=== PATIENT | male | born 1975 | race American Indian/Alaskan Native ===

== ENCOUNTER 2017-08-16 20:52 | Observation (INO) | payer OTHER ==
[2017-08-16 20:52] VITALS: BMI 37.3
[2017-08-16] MEDS ORDERED: Morphine 2 mg/ml ISec IVP STA (21:25)
[2017-08-16] MEDS ORDERED: Sodium Chloride 0.9% 500 ML IV STA (21:25)
--- NOTE | 2017-08-16 21:28 | ED PDOC ---
Arrival/HPI - General Chief Complaint: Abdominal Pain Time Seen by Provider: 08/16/17 21:21 - History of Present Illness Narrative History of Present Illness (Text): 08/16/17 21:26 Patient is a 42 y/o M with hx of diverticulitis presenting with 2 day history of LLQ. Reports intermittent diarrhea. Denies vomiting. Denies dysuria, flank pain, or scrotal pain. Denies chest pain or shortness of breath. PMD: Dr. Jing Pa GI: Johnnie Past Medical History - Infectious Disease Hx of Infectious Diseases: None - Tetanus Immunization Tetanus Immunization: Unknown - Past Medical History Past Medical History: No Previous - Cardiac Hx Cardiac Disorders: No - Pulmonary Hx Respiratory Disorders: No - Neurological Hx Neurological Disorder: No - HEENT Hx HEENT Disorder: No - Renal Hx Renal Disorder: Yes Hx Kidney Stones: Yes Other/Comment: Renal Colic - Endocrine/Metabolic Hx Endocrine Disorders: No - Hematological/Oncological Hx Blood Disorders: No - Integumentary Hx Dermatological Disorder: No - Musculoskeletal/Rheumatological Hx Musculoskeletal Disorders: No - Gastrointestinal Hx Gastrointestinal Disorders: Yes Hx Diverticulitis: Yes - Genitourinary/Gynecological Hx Genitourinary Disorders: Yes Hx Hematuria: Yes - Psychiatric Hx Psychophysiologic Disorder: No Hx Substance Use: No - Past Surgical History Past Surgical History: Non-Contributing - Surgical History Hx Orthopedic Surgery: Yes - Anesthesia Hx Anesthesia: Yes - Suicidal Assessment Feels Threatened In Home Enviroment: No Family/Social History Family/Social History: No Known Family HX Smoking Status: Current Some Days Smoker Hx Alcohol Use: Yes Frequency of alcohol use: Socially Hx Substance Use: No Hx Substance Use Treatment: No Allergies/Home Meds Allergies/Adverse Reactions: Allergies avocado Allergy (Verified 12/11/15 02:45) ANAPHYLAXIS Review of Systems - Physician Review All systems were reviewed & negative as marked: Yes - Review of Systems Eyes: absent: Vision Changes ENT: absent: Hearing Changes Respiratory: absent: SOB, Cough, Sputum, Wheezing Cardiovascular: absent: Chest Pain, Edema, Calf Pain, EMMANUEL, Orthopnea, Syncope Gastrointestinal: Abdominal Pain, Diarrhea. absent: Constipation, Nausea, Vomiting Genitourinary Male: absent: Dysuria, Frequency, Hematuria, Urinary Output Changes Musculoskeletal: absent: Arthralgias Skin: absent: Rash Neurological: absent: Headache, Dizziness, Focal Weakness, Gait Changes, Speech Changes Psychiatric: absent: Anxiety Physical Exam Vital Signs Temp Pulse Resp BP Pulse Ox 08/16/17 21:13 99.5 F 90 17 130/85 98 Temperature: Afebrile Blood Pressure: Normal Pulse: Regular Respiratory Rate: Normal Appearance: Positive for: Well-Appearing, Non-Toxic, Comfortable Pain Distress: None Mental Status: Positive for: Alert and Oriented X 3 - Systems Exam Head: Present: Atraumatic, Normocephalic Pupils: Present: PERRL Extroacular Muscles: Present: EOMI Conjunctiva: Present: Normal Mouth: Present: Moist Mucous Membranes Neck: Present: Normal Range of Motion Respiratory/Chest: Present: Clear to Auscultation, Good Air Exchange. No: Respiratory Distress, Accessory Muscle Use Cardiovascular: Present: Regular Rate and Rhythm, Normal S1, S2. No: Murmurs Abdomen: Present: Tenderness (LLQ). No: Distention, Rebound, Guarding Back: Present: Normal Inspection Upper Extremity: Present: Normal Inspection Lower Extremity: Present: Normal Inspection Neurological: Present: GCS=15, CN II-XII Intact Psychiatric: Present: Alert, Oriented x 3 Medical Decision Making ED Course and Treatment: 08/16/17 22:54 Patient reports pain is similar to previous episodes of diverticulitis. Tenderness to LLQ. Pain medication, ivf, labs and ct ordered. Will sign out to Dr. Tao to follow-up labs and CT - RAD Interpretation Radiology Orders: 08/16/17 21:25 ABD & PELVIS IV CONTRAST ONLY [CT] Stat - Medication Orders Current Medication Orders: Discontinued Medications Sodium Chloride (Sodium Chloride 0.9%) 500 mls @ 999 mls/hr IV .Q31M STA Stop: 08/16/17 21:55 Ketorolac Tromethamine (Toradol) 30 mg IVP STAT STA Stop: 08/16/17 21:26 Morphine Sulfate (Morphine) 2 mg IVP STAT STA Stop: 08/16/17 21:26 Disposition/Present on Arrival - Present on Arrival Any Indicators Present on Arrival: No History of DVT/PE: Yes History of Uncontrolled Diabetes: No Urinary Catheter: No History of Decub. Ulcer: No History Surgical Site Infection Following: Orthopedic Procedures - Disposition Have Diagnosis and Disposition been Completed?: Yes Diagnosis: Abdominal pain Disposition Time: 22:55 Condition: FAIR Forms: [employer] (Arabic)
[2017-08-16] MEDS ORDERED: Iohexol 350 MG/100 ML VIAL ONE (23:15)
[2017-08-17 00:15] LABS: BASO # 0.02 K/mm3 (0.0-2.0); BASO % 0.3 % (0.0-3.0); EOS % 0.4 % (1.5-5.0); GRAN # 5.03 (1.4-6.5); GRAN % 67.7 % (50.0-68.0); HEMOGLOBIN 12.1 g/dL (14.0-18.0); LYMPH % 26.2 % (22.0-35.0); MEAN CELL VOLUME 82.2 fl (80.0-105.0); MEAN CORPUSCULAR HEMOGLOBIN 26.6 pg (25.0-35.0); MEAN CORPUSCULAR HGB CONC 32.4 g/dl (31.0-37.0); MEAN PLATELET VOLUME 11.8 fl (7.0-11.0); MONO # 0.4 (0.1-0.6); MONO % 5.4 % (1.0-6.0); RBC 4.55 10^6/uL (3.5-6.1); RED CELL DISTRIBUTION WIDTH 14.1 % (11.5-14.5); WHITE BLOOD COUNT 7.4 10^3/ul (4.5-11.0)
[2017-08-17 00:23] LABS: ALB/GLOB RATIO 1.1 (1.1-1.8); ALBUMIN 3.5 g/dL (3.0-4.8); ALT/SGPT 32 U/L (7-56); AST/SGOT 20 U/L (17-59); BLOOD UREA NITROGEN 13 mg/dL (7-21); CALCIUM 9.5 mg/dL (8.4-10.5); GFR AFRICAN-AMERICAN > 60; GFR NON-AFRICAN AMERICAN > 60; LIPASE 49 U/L (23-300)
--- NOTE | 2017-08-17 01:17 | CT ---
EXAM: CT Abdomen and Pelvis With Intravenous Contrast CLINICAL HISTORY: 42 years old, male; Pain; Abdominal pain; Flank; Left lower quadrant (llq); Additional info: Llq pain TECHNIQUE: Axial computed tomography images of the abdomen and pelvis with intravenous contrast. All CT scans at this facility use one or more dose reduction techniques, viz.: automated exposure control; ma/kV adjustment per patient size (including targeted exams where dose is matched to indication; i.e. head); or iterative reconstruction technique. 695 images are submitted. Coronal and sagittal reformatted images were created and reviewed. CONTRAST: 100 mL of OMNIPAQUE 350 administered intravenously. COMPARISON: CT - ABD PELVIS IV CONTRAST ONLY 2015-12-11 04:32 FINDINGS: Lower thorax: There is bibasilar atelectasis. ABDOMEN: Liver: Unremarkable. No mass. Gallbladder and bile ducts: Contracted gallbladder. Pancreas: Unremarkable. No mass. No ductal dilation. Spleen: Unremarkable. No splenomegaly. Adrenals: Unremarkable. No mass. Kidneys and ureters: Nonobstructive punctate bilateral renal stones. Stomach and bowel: There is thickening of the proximal transverse colon seen on image 49 series with diverticulosis and surrounding inflammatory change representing the right upper quadrant focal colitis versus diverticulitis. An annular constricting lesion secondary to colonic neoplasm cannot be excluded. Nonspecific gastric thickening likely due to under distention. Correlation with clinical data is recommended if gastritis is suspected. Appendix: Normal appendix. PELVIS: Bladder: Unremarkable. Reproductive: Enlarged prostate gland. ABDOMEN and PELVIS: Intraperitoneal space: Unremarkable. No free air. No significant fluid collection. Bones/joints: No acute fracture. No dislocation. Soft tissues: Bilateral inguinal herniation of fat. Vasculature: Pelvic phleboliths. No abdominal aortic aneurysm. Lymph nodes: Unremarkable. No enlarged lymph nodes. IMPRESSION: 1. There is thickening of the proximal transverse colon seen on image 49 series with diverticulosis and surrounding inflammatory change representing the right upper quadrant focal colitis versus diverticulitis. An annular constricting lesion secondary to colonic neoplasm cannot be excluded. No evidence of perforation or abscess or bleeding.Correlation with clinical evaluation and further workup or followup as recommended by patient's clinical data.
[2017-08-17] MEDS ORDERED: Ciprofloxacin 400mg/200ml D5W 400 MG/200 ML BAG IVPB STA (02:18)
[2017-08-17] MEDS: metroNIDAZOLE IV 500 mg/100 ml 500 MG/100 ML BAG IVPB STA ×2 (03:15→05:09)
[2017-08-17] MEDS ORDERED: Sodium Chloride 0.9% 1,000 ML IV SCH (15:45)
--- NOTE | 2017-08-17 18:02 | CP.PCM.CON ---
History of Present Illness - History of Present Illness History of Present Illness: Consult note for General Surgery: Dr. Cadena Reason for consult: abdominal pain CC: abdominal pain x2 days HPI: 42M with PMHx of diverticulitis presented to [facility] ED on 08/16/17 with complaints of abdominal pain. Patient reports pain began two days ago when he woke up. He described the pain as constant and localized along the mid upper abdominal region. Patient denies hematemesis/hematochezia. Denies fever/chills, chest pain or shortness of breath. Last colonoscopy done one 08/18/2015 which demonstrated diverticulosis throughout entire colon. Imaging: CT Abd&Pel was done which demonstrated thickening of the proximal transverse colon. For further details please see official report. PMHx: diverticulitis Allergy: Avocado Soc Hx: smokes cigars "once in a while", drinks EtOH sociall, denies illicit drug use Fam Hx: non contributory Review of Systems - Review of Systems Review of Systems: 12 pt ROS unremarkable, except as stated in HPI Past Patient History - Infectious Disease Hx of Infectious Diseases: None - Tetanus Immunizations Tetanus Immunization: Unknown - Past Social History Smoking Status: Current Some Days Smoker - CARDIAC Hx Cardiac Disorders: No Other/Comment: DVT left leg - PULMONARY Hx Respiratory Disorders: No - NEUROLOGICAL Hx Neurological Disorder: No - HEENT Hx HEENT Problems: No - RENAL Hx Chronic Kidney Disease: Yes Hx Kidney Stones: Yes Other/Comment: Renal Colic - ENDOCRINE/METABOLIC Hx Endocrine Disorders: No - HEMATOLOGICAL/ONCOLOGICAL Hx Blood Disorders: No - INTEGUMENTARY Hx Dermatological Problems: No - MUSCULOSKELETAL/RHEUMATOLOGICAL Hx Musculoskeletal Disorders: No Hx Falls: No - GASTROINTESTINAL Hx Gastrointestinal Disorders: Yes Hx Diverticulitis: Yes - GENITOURINARY/GYNECOLOGICAL Hx Genitourinary Disorders: Yes Hx Hematuria: Yes - PSYCHIATRIC Hx Psychophysiologic Disorder: No - SURGICAL HISTORY Hx Orthopedic Surgery: Yes (2013 achilles tendon repair) - ANESTHESIA Hx Anesthesia: Yes Meds Allergies/Adverse Reactions: Allergies Allergy/AdvReac Type Severity Reaction Status Date / Time avocado Allergy ANAPHYLAXIS Verified 12/11/15 02:45 - Medications Medications: Current Medications Sodium Chloride (Sodium Chloride 0.9%) 1,000 mls @ 80 mls/hr IV .[id number] [facility] Last Admin: 08/17/17 15:36 Dose: 80 mls/hr Ceftriaxone Sodium (Rocephin 1 Gram Ivpb) 1 gm in 100 mls @ 100 mls/hr IVPB DAILY [facility] PRN Reason: Protocol Metronidazole (Flagyl) 500 mg in 100 mls @ 100 mls/hr IVPB Q8 [facility] PRN Reason: Protocol Physical Exam - Constitutional Appears: No Acute Distress - Head Exam Head Exam: NORMOCEPHALIC - Eye Exam Eye Exam: Normal appearance - ENT Exam ENT Exam: Mucous Membranes Moist - Neck Exam Neck exam: Positive for: Normal Inspection - Respiratory Exam Respiratory Exam: NORMAL BREATHING PATTERN - Cardiovascular Exam Cardiovascular Exam: +S1, +S2 - GI/Abdominal Exam GI & Abdominal Exam: Soft, Tenderness Additional comments: mid epigastric tenderness RUQ tenderness - Neurological Exam Neurological exam: Alert, Oriented x3 - Psychiatric Exam Psychiatric exam: Normal Mood - Skin Skin Exam: Dry, Intact, Normal Color, Warm Results - Vital Signs Recent Vital Signs: Last Vital Signs Temp 98.7 F 08/17/17 15:37 Pulse 54 L 08/17/17 15:37 Resp 16 08/17/17 15:37 BP 131/82 08/17/17 15:37 Pulse Ox 99 08/17/17 15:37 - Labs Result Diagrams: 08/16/17 23:50 08/16/17 23:50 - Imaging and Cardiology CT scan - abdomen Status: Image reviewed by me, Report reviewed by me Assessment & Plan - Assessment and Plan (Free Text) Assessment: 42M with abdominal pain 2/2 right transverse colon diverticulitis Plan: Liquid diet ABx Anti-emetics Analgesics DVT ppx Serial abd exams Will continue to follow D/w Dr. Surinder Mata PGY2
[2017-08-17] MEDS: metroNIDAZOLE IV 500 mg/100 ml 500 MG/100 ML BAG IVPB SCH (21:17)
--- NOTE | 2017-08-18 00:38 | HP ---
DATE OF EXAM: 08/17/2017 HISTORY OF PRESENT ILLNESS: Mr. Andrade is a 42-year-old male presented to ED with left lower quadrant pain. He has history of diverticulitis. He had colonoscopy done on a regular basis, does not have any mass. He is currently on IV antibiotics, ceftriaxone and Flagyl. Denies any shortness of breath. No abdominal pain. No nausea, no vomiting. CAT scan of the abdomen showed thickening of transverse colon. No evidence of diverticulitis. No mass lesion identified. PAST MEDICAL HISTORY: History of renal colic, history of diverticulitis in the past, hematuria. PAST SURGICAL HISTORY: Orthopedic surgery. ALLERGIES: AVOCADO. PERSONAL HISTORY: No history of substance abuse. Nonsmoker. No history of alcohol abuse. FAMILY HISTORY: Noncontributory. SOCIAL HISTORY: Lives at home. REVIEW OF SYSTEMS: As per HPI. Rest of 12-point review of systems reviewed negative. PHYSICAL EXAMINATION: GENERAL: Comfortable in bed, in no acute distress. VITAL SIGNS: Temperature 99.5, heart rate 80 per minute, respiratory rate 15 per minute, blood pressure 130/70, pulse ox is 98% on room air. HEENT: Pallor positive. NECK: No lymphadenopathy. CHEST: Air entry present and equal bilateral. No added sounds. CARDIOVASCULAR: S1, S2 normal. No murmur. No gallop. ABDOMEN: Soft, nontender. No hepatosplenomegaly. No rebound tenderness. EXTREMITIES: No edema. CENTRAL NERVOUS SYSTEM: Alert, oriented x3. No focal sensory or motor deficits. SPINE: Nontender. SKIN: No petechiae. No rash. LABORATORY DATA: White count of 7.4, hemoglobin 12.1, hematocrit 37.4, platelet count 172. Granulocyte 67%, monocyte 5.4%. Sodium 140, potassium 4.1, creatinine 0.9. Total bilirubin 0.3, AST 20, ALT 32, alkaline phosphatase 35. ASSESSMENT: 1. Acute colitis. 2. History of diverticulitis. 3. Mild anemia. PLAN: He is currently on IV fluid, NPO. GI consultation, Dr. Blair, requested. Surgery consultation, Dr. Cadena, requested. We will continue to monitor blood count. Continue to monitor electrolytes. Abdominal pain resolved. We will advance the diet, start the liquid diet today. If tolerating, advance the diet tomorrow. Discussed with Dr. Blair. Awaiting Surgery input. Continue ceftriaxone and Flagyl for acute colitis. We will continue IV fluid, normal saline at 80 mL an hour. DVT prophylaxis, Lovenox 40 mg subcutaneous. Toyin Mixon MD KRISTI
[2017-08-18] MEDS: metroNIDAZOLE IV 500 mg/100 ml 500 MG/100 ML BAG IVPB SCH ×3 (06:18→21:23)
[2017-08-18 07:34] LABS: HEMOGLOBIN 11.8 g/dL (14.0-18.0); MEAN CELL VOLUME 82.3 fl (80.0-105.0); MEAN CORPUSCULAR HGB CONC 31.6 g/dl (31.0-37.0); MEAN PLATELET VOLUME 10.9 fl (7.0-11.0); RBC 4.53 10^6/uL (3.5-6.1); WHITE BLOOD COUNT 4.2 10^3/ul (4.5-11.0)
[2017-08-18 08:05] LABS: ALBUMIN 3.2 g/dL (3.0-4.8); ALT/SGPT 31 U/L (7-56); AST/SGOT 17 U/L (17-59); BLOOD UREA NITROGEN 10 mg/dL (7-21); GFR AFRICAN-AMERICAN > 60; GFR NON-AFRICAN AMERICAN > 60
[2017-08-18] MEDS ORDERED: Enoxaparin 40 mg Syringe SC SCH (10:00)
[2017-08-18] MEDS ORDERED: cefTRIAXone 1 gm 1 GM/100 ML BAG IVPB SCH (10:00)
--- NOTE | 2017-08-18 11:02 | CP.PCM.PN ---
Subjective - Date & Time of Evaluation Date of Evaluation: 08/18/17 Time of Evaluation: 10:30 - Subjective Subjective: Patient seen and examined. No acute events over night. No complaints. Denies fever/chills, nausea/vomiting, abdominal pain. Objective - Vital Signs/Intake and Output Vital Signs (last 24 hours): Temp Pulse Resp BP Pulse Ox 98.8 F 49 L 16 124/75 99 08/18/17 06:00 08/18/17 06:00 08/18/17 06:00 08/18/17 06:00 08/18/17 06:00 Intake and Output: 08/18/17 08/18/17 06:59 18:59 Intake Total Output Total Balance - Medications Medications: Current Medications Acetaminophen (Tylenol 325mg Tab) 650 mg PO Q6H PRN PRN Reason: Pain, Mild (1-3) Enoxaparin Sodium (Lovenox) 40 mg SC DAILY [facility] PRN Reason: Protocol Last Admin: 08/18/17 09:06 Dose: 40 mg Sodium Chloride (Sodium Chloride 0.9%) 1,000 mls @ 80 mls/hr IV .[id number] [facility] Last Admin: 08/17/17 15:36 Dose: 80 mls/hr Ceftriaxone Sodium (Rocephin 1 Gram Ivpb) 1 gm in 100 mls @ 100 mls/hr IVPB DAILY [facility] PRN Reason: Protocol Last Admin: 08/18/17 09:06 Dose: 100 mls/hr Metronidazole (Flagyl) 500 mg in 100 mls @ 100 mls/hr IVPB Q8 [facility] PRN Reason: Protocol Last Admin: 08/18/17 06:18 Dose: 100 mls/hr Ketorolac Tromethamine (Toradol) 30 mg IVP Q6H PRN PRN Reason: Pain, moderate (4-7) Stop: 08/19/17 15:46 - Labs Labs: 08/18/17 07:00 08/18/17 07:00 - Constitutional Appears: No Acute Distress - Head Exam Head Exam: NORMOCEPHALIC - Eye Exam Eye Exam: Normal appearance - ENT Exam ENT Exam: Normal Exam - Neck Exam Neck Exam: Normal Inspection - Respiratory Exam Respiratory Exam: NORMAL BREATHING PATTERN - Cardiovascular Exam Cardiovascular Exam: +S1, +S2 - GI/Abdominal Exam GI & Abdominal Exam: Soft. absent: Distended, Firm, Guarding, Tenderness, Rebound - Rectal Exam Rectal Exam: NORMAL INSPECTION - Exam External exam: NORMAL EXTERNAL EXAM - Neurological Exam Neurological Exam: Alert, Awake, Oriented x3 - Psychiatric Exam Psychiatric exam: Normal Mood - Skin Skin Exam: Dry, Intact, Warm Assessment and Plan - Assessment and Plan (Free Text) Assessment: 42M with abdominal pain 2/2 right transverse colon diverticulitis Plan: Full liquid diet Will advance to regular if tolerates FLD ABx Anti-emetics Analgesics DVT ppx Serial abd exams Will continue to follow D/w Dr. Surinder Mata PGY2
--- NOTE | 2017-08-18 22:06 | PN ---
DATE: 08/18/2017 SUBJECTIVE: This patient was seen and evaluated earlier today. Patient feels much better, on liquid diet. OBJECTIVE: VITAL SIGNS: Temperature 98.4, pulse 87, blood pressure 122/90. HEENT: Atraumatic, anicteric. NECK: Supple. HEART: S1 and S2 heard. LUNGS: Bilateral air entry present. ABDOMEN: Soft. There is minimal tenderness on the right upper quadrant area, otherwise unremarkable. EXTREMITIES: No edema. No cyanosis. NEUROLOGIC: Alert, oriented. Moves all extremities. LABORATORY DATA: Hemoglobin 11.8, hematocrit 37.3, WBC 4.2, platelets 158. BUN 10, creatinine 0.9. IMPRESSION: This 42-year-old patient who has a history of recurrent episodes of diverticulitis mainly on the left side of the colon, this time admitted with proximal transverse colon inflammation. There is also focal thickening noticed in that area. Patient did have a colonoscopy done in 2015, had a diverticulosis present throughout the colon. Patient did have one episode of microperforation on the left colon. Patient does have history of gastric erosions, reflux disease, had an endoscopy done in 2016. CAT scan also showed some thickening in the antral area. RECOMMENDATIONS: We would recommend: 1. Continue the antibiotics. 2. I did discuss with Dr. Meade today regarding the antibiotics. 3. Patient would benefit from repeating the CAT scan in about 2 to 3 weeks time to evaluate the colonic thickening and we will consider elective colonoscopy in 6 to 8 weeks time. Slowly, will cautiously advance the diet. Thank you very much for allowing me to participate in the care of this patient. Lise Blair MD
--- NOTE | 2017-08-18 23:44 | CON ---
DATE: 08/18/2017 LOCATION: The patient is in room 578, bed 1. CHIEF COMPLAINT: Abdominal pain times several days. HISTORY OF PRESENT ILLNESS: This is a 42-year-old male with past measures diverticulitis and renal colic, who was admitted with a diagnosis of diverticulitis and given antibiotics. The patient is still having some abdominal pain. No nausea and vomiting. No fevers and chills. No chest pain. No cough. No dysuria or frequency. No headaches. PAST MEDICAL HISTORY: Significant for diverticulitis and renal colic. PAST SURGICAL HISTORY: Significant for orthopedic surgery. ALLERGIES: THE PATIENT IS ALLERGIC TO AVOCADO. MEDICATIONS AT HOME: None listed. PHYSICAL EXAMINATION: GENERAL: The patient is in bed, in no acute distress. VITAL SIGNS: Temperature of 98, blood pressure is 130/80, heart rate of 60 and respiratory rate of 18. HEENT: Examination of HEENT is unremarkable. NECK: Supple. LUNGS: Have decreased breath sounds. HEART: Normal S1, S2. ABDOMEN: Soft. Mild tenderness. No rebound or guarding. LABORATORY DATA: Laboratory examination reveals the patient's white count is 7.4, hemoglobin of 12, platelets of 172. Chemistries are noted. Microbiology is reviewed. CAT scan shows acute diverticulitis. ASSESSMENT AND PLAN: This is a 42-year-old male who has history of diverticulitis and renal colic with a family history of diverticulitis. His brother had diverticulitis with #1 is acute diverticulitis in a patient with a history of family diverticulitis. Case discussed with Dr. Blair, the public relations coordinator regarding the family history and the need for further workup. #1 is acute diverticulitis. We will treat the patient with Zosyn and follow clinically. We will also order an human immunodeficiency virus test because of his age of 42 in a patient with a family history, his brother also has diverticulitis. We will follow with you. Homer Meade MD
--- NOTE | 2017-08-19 00:15 | CP.PCM.PN ---
Subjective - Date & Time of Evaluation Date of Evaluation: 08/18/17 Time of Evaluation: 12:00 - Subjective Subjective: DATE OF EXAM: 08/18/2017 HISTORY OF PRESENT ILLNESS: Mr. Andrade is a 42-year-old male presented to ED with left lower quadrant pain. He has history of diverticulitis. He had colonoscopy done on a regular basis, does not have any mass. He is currently on IV antibiotics, ceftriaxone and Flagyl. Denies any shortness of breath. CAT scan of the abdomen showed thickening of transverse colon. GC improved. No nausea, no vomiting. No abdominal pain . PAST MEDICAL HISTORY: History of renal colic, history of diverticulitis in the past, hematuria. PAST SURGICAL HISTORY: Orthopedic surgery. ALLERGIES: AVOCADO. PERSONAL HISTORY: No history of substance abuse. Nonsmoker. No history of alcohol abuse. FAMILY HISTORY: Noncontributory. SOCIAL HISTORY: Lives at home. REVIEW OF SYSTEMS: As per HPI. Rest of 12-point review of systems reviewed negative. PHYSICAL EXAMINATION: GENERAL: Comfortable in bed, in no acute distress. VITAL SIGNS: reviewed. HEENT: Pallor positive. NECK: No lymphadenopathy. CHEST: Air entry present and equal bilateral. No added sounds. CARDIOVASCULAR: S1, S2 normal. No murmur. No gallop. ABDOMEN: Soft, nontender. No hepatosplenomegaly. No rebound tenderness. EXTREMITIES: No edema. CENTRAL NERVOUS SYSTEM: Alert, oriented x3. No focal sensory or motor deficits. SPINE: Nontender. SKIN: No petechiae. No rash. LABORATORY DATA: reviewed. ASSESSMENT: 1. Acute colitis. 2. History of diverticulitis. 3. Mild anemia. PLAN: He is currently on IV fluid, NPO. GI consultation, Dr. Blair, appreciated. Surgery consultation, Dr. Cadena, appreciated. We will continue to monitor blood count. Continue to monitor electrolytes. Abdominal pain resolved. We will advance the diet to soft. ID consultation Dr. Nelson requested. Ceftrioxone changed to zosyn. DVT prophylaxis, Lovenox 40 mg subcutaneous. Encouraged ambulation. Labs ordered for am. Toyin Mixon MD Objective - Vital Signs/Intake and Output Vital Signs (last 24 hours): Temp Pulse Resp BP Pulse Ox 98.8 F 59 L 18 130/88 100 08/18/17 22:26 08/18/17 22:26 08/18/17 22:26 08/18/17 22:26 08/18/17 22:26 Intake and Output: 08/18/17 08/19/17 18:59 06:59 Intake Total 700 Balance 700 - Medications Medications: Current Medications Acetaminophen (Tylenol 325mg Tab) 650 mg PO Q6H PRN PRN Reason: Pain, Mild (1-3) Enoxaparin Sodium (Lovenox) 40 mg SC DAILY [facility] PRN Reason: Protocol Last Admin: 08/18/17 09:06 Dose: 40 mg Metronidazole (Flagyl) 500 mg in 100 mls @ 100 mls/hr IVPB Q8 [facility] PRN Reason: Protocol Last Admin: 08/18/17 21:23 Dose: 100 mls/hr Piperacillin Sod/Tazobactam Sod (Zosyn 3.375 In Ns 100ml) 100 mls @ 200 mls/hr IVPB Q6 [facility] PRN Reason: Protocol Stop: 08/27/17 18:01 Ketorolac Tromethamine (Toradol) 30 mg IVP Q6H PRN PRN Reason: Pain, moderate (4-7) Stop: 08/19/17 15:46 - Labs Labs: 08/18/17 07:00 08/18/17 07:00
[2017-08-19] MEDS: Piperacillin/Tazobact 3.375 gm 100 ML IVPB SCH ×2 (02:14→05:59)
[2017-08-19] MEDS: metroNIDAZOLE IV 500 mg/100 ml 500 MG/100 ML BAG IVPB SCH (05:59)
[2017-08-19 07:56] VITALS: BP 116/61; PULSE 61; RESP 16; TEMP 98.9; O2SAT 98
--- NOTE | 2017-08-19 08:06 | PN ---
DATE: SUBJECTIVE: The patient has no complaints of any chest pain. No shortness of breath. No headaches. He states the abdominal pain is better. PHYSICAL EXAMINATION VITAL SIGNS: Temperature is 98.8, pulse 69, blood pressure 130/88, respirations 18. GENERAL: The patient is lying in bed, flat, comfortable. HEENT: No oral lesion. Anicteric sclerae. Moist mucosa. NECK: No JVD, adenopathy, or thyromegaly. CARDIOVASCULAR: S1 and S2, regular. No murmurs, rubs, or gallops. LUNGS: Clear to auscultation bilaterally. No wheeze, rales, or rhonchi. ABDOMEN: Bowel sounds are positive. Soft, nontender and nondistended. EXTREMITIES: No cyanosis, clubbing or edema. LABORATORY DATA: White count of 4.2, hemoglobin of 11.8. ASSESSMENT: Acute diverticulitis. PLAN: The patient is currently improving. On the CAT scan, he has diverticulitis versus colitis. Patient is on Flagyl for antibiotics. He is receiving Zosyn for antibiotics. He is being followed by GI and Infectious Disease. I did review the notes by Infectious Disease. No further surgical consultation. We will continue to follow the patient. I will await further input from the consultants. Amado Casillas MD
--- NOTE | 2017-08-19 08:07 | CP.PCM.PN ---
Subjective - Date & Time of Evaluation Date of Evaluation: 08/19/17 Time of Evaluation: 06:55 - Subjective Subjective: Patient seen and examined. No complaints. Denies nausea, vomiting, abdominal pain. Tolerating regular diet. Reports having normal bowel movements. Objective - Vital Signs/Intake and Output Vital Signs (last 24 hours): Temp Pulse Resp BP Pulse Ox 98.9 F 61 16 116/61 98 08/19/17 07:55 08/19/17 07:55 08/19/17 07:55 08/19/17 07:55 08/19/17 07:55 Intake and Output: 08/19/17 08/19/17 06:59 18:59 Intake Total 880 Output Total 1000 Balance -120 - Medications Medications: Current Medications Acetaminophen (Tylenol 325mg Tab) 650 mg PO Q6H PRN PRN Reason: Pain, Mild (1-3) Enoxaparin Sodium (Lovenox) 40 mg SC DAILY BLAKE PRN Reason: Protocol Last Admin: 08/18/17 09:06 Dose: 40 mg Metronidazole (Flagyl) 500 mg in 100 mls @ 100 mls/hr IVPB Q8 BLAKE PRN Reason: Protocol Last Admin: 08/19/17 05:59 Dose: 100 mls/hr Piperacillin Sod/Tazobactam Sod (Zosyn 3.375 In Ns 100ml) 100 mls @ 200 mls/hr IVPB Q6 BLAKE PRN Reason: Protocol Stop: 08/27/17 18:01 Last Admin: 08/19/17 05:59 Dose: 200 mls/hr Ketorolac Tromethamine (Toradol) 30 mg IVP Q6H PRN PRN Reason: Pain, moderate (4-7) Stop: 08/19/17 15:46 - Labs Labs: 08/18/17 07:00 08/18/17 07:00 - Constitutional Appears: No Acute Distress - Head Exam Head Exam: NORMOCEPHALIC - Eye Exam Eye Exam: Normal appearance Pupil Exam: NORMAL ACCOMODATION - ENT Exam ENT Exam: Mucous Membranes Moist - Respiratory Exam Respiratory Exam: NORMAL BREATHING PATTERN - Cardiovascular Exam Cardiovascular Exam: +S1, +S2 - GI/Abdominal Exam GI & Abdominal Exam: Soft. absent: Distended, Firm, Guarding, Tenderness - Neurological Exam Neurological Exam: Alert, Awake, Oriented x3 - Psychiatric Exam Psychiatric exam: Normal Mood - Skin Skin Exam: Dry, Intact, Warm Assessment and Plan - Assessment and Plan (Free Text) Assessment: 42M with abdominal pain 2/2 right transverse colon diverticulitis Plan: Regular diet ABx Anti-emetics Analgesics DVT ppx Clear for d/c from surgical standpoint D/w Dr. Surinder Mata PGY2
--- NOTE | 2017-08-19 09:27 | CON ---
DATE: 08/17/2017 REASON FOR CONSULTATION: Abdominal pain, diverticulitis. HISTORY OF PRESENT ILLNESS: This 42-year-old patient with a history of recurrent diverticulitis, has an acute episode of abdominal pain. He reports that the pain is mainly in the epigastric towards the left side of the abdomen. He said he was doing well until 2 days ago it started. The discomfort progressively increased. No vomiting, no bleeding per rectum. He had several episodes of diverticulitis in the past. He had a CT scan of the abdomen and pelvis done in December prior to this. He had some involvement of the descending colon, diverticulitis. Had a colonoscopy done in August 2015, was found to have diverticulosis throughout the entire colon. No inflammation otherwise noticed at that time. PAST MEDICAL HISTORY: Significant as above. History of gastroesophageal reflux disease. ALLERGIES: ALLERGIC TO AVOCADO. SOCIAL HISTORY: Occasional smoking, social alcohol. The patient is now working out, takes some protein drinks and is trying to reduce the weight. REVIEW OF SYSTEMS: Positive as above. FAMILY HISTORY: Noncontributory. PHYSICAL EXAMINATION: GENERAL: The patient is lying on the bed, not in acute distress. VITAL SIGNS: Temperature is 98.7, pulse 54, blood pressure is 131/82, respiration 16, O2 saturation 99. HEENT: Atraumatic, anicteric. NECK: Supple. HEART: S1 and S2 heard. LUNGS: Bilateral air entry present. ABDOMEN: Soft. There was a tenderness present in the epigastric and more towards the right upper quadrant area. There is no rebound or guarding. EXTREMITIES: No edema, no cyanosis. NEUROLOGIC: Alert, oriented. Moves all the extremities. LABORATORY DATA: WBC count 7.4, hemoglobin 12.1, hematocrit 37.4, platelets 172. Chemistries otherwise unremarkable. CT scan of the abdomen done was reviewed and the patient has significant thickening of the segment in the transverse colon with a pericolonic inflammation and diverticulosis. IMPRESSION: This 42-year-old patient admitted with acute onset of abdominal pain and history of recurrent diverticulitis in the past and the patient has some tenderness in the epigastric and right upper quadrant area. CT scan was reviewed, showed proximal transverse colon thickening with some inflammatory changes. Also noticed gastric thickening, annular constricting lesion, such as spasm. The colonoscopy done before was reviewed. The patient does have entire colon showing diverticulosis. No polyps were seen at that time. RECOMMENDATIONS: I would recommend: 1. Continue the antibiotics, ceftriaxone and Flagyl. 2. Clear liquid diet. 3. The patient may need a repeat CAT scan to evaluate the improvement of his colitis in few days' time based on the clinical course. 4. The patient also has a history of gastroesophageal reflux disease, gastric erosions. We will start the patient on PPI. We would consider repeating the endoscopy electively. Thank you very much for allowing us to participate in the care of the patient. We will continue to closely follow up his care and suggest further management based on the clinical course. Lise Blair MD MTDD
--- NOTE | 2017-08-20 03:56 | PN ---
DATE: 08/19/2017 SUBJECTIVE: This patient was seen and evaluated earlier today. The patient comfortable earlier today. The patient tolerating the diet comfortably. PHYSICAL EXAMINATION: VITAL SIGNS: On examination, temperature 98.9, pulse 61, blood pressure 106/61, respirations 16, and O2 saturation is 98%. HEENT: Atraumatic, anicteric. NECK: Supple. HEART: S1, S2 heard. LUNGS: Bilateral air entry present. ABDOMEN: Soft. There is no mass palpable. There was mild tenderness, and no tenderness at this time. EXTREMITIES: No edema. No cyanosis. LABORATORY DATA: No recent labs at this time. IMPRESSION: Acute diverticulitis. There is some mural thickening in that area, mainly the transverse colon. RECOMMENDATIONS: I would recommend: 1. We will complete the antibiotic course as per Infectious Disease. 2. We would repeat the CT scan in two to three weeks' time, then consider colonoscopy in six to eight weeks' time. 3. The patient was advised to come to the emergency room if any worsening of the symptoms. He would benefit from elective EGD and colonoscopy. The patient has a history of peptic ulcer disease in the past. CT also showed some antral wall thickening. Thank you very much for allowing us to participate in the care of the patient. Lise Blair MD
== END 2017-08-19 12:08 | disposition home or self-care (01) ==
LOC: ED 20:52 → ERH 08-17 02:19 → 5RSO 08-17 03:24
PROVIDERS: ADMIT Internal Medicine Nephrology; ATTEND Internal Medicine Nephrology
DX: K57.32 Diverticulitis of large intestine without perforation or abscess without bleeding (principal); K52.9 Noninfective gastroenteritis and colitis, unspecified; D64.9 Anemia, unspecified; K21.9 Gastro-esophageal reflux disease without esophagitis; N23 Unspecified renal colic; F17.290 Nicotine dependence, other tobacco product, uncomplicated; Z87.11 Personal history of peptic ulcer disease
CPT/HCPCS: 36415; 74177; 80053; 83690; 83735; 84100; 85025; 85027; 87389; 96374; 99284; G0378; J0696; J0744; J1650; J1885; J2270; J2543; J7040; Q9967

== ENCOUNTER 2017-10-11 09:20 | Day surgery (SDC) | payer OTHER ==
[2017-10-03 13:52] VITALS: BMI 34.2
[2017-10-11] MEDS ORDERED: Propofol 10 mg/ml Inj (20 ML) ONE ×2 (12:04→12:24)
[2017-10-11] MEDS ORDERED: Lactated Ringer's 1,000 ML IV SCH (12:45)
[2017-10-11 13:33] VITALS: BP 106/67; PULSE 62; RESP 17; TEMP 98; O2SAT 100
== END 2017-10-11 14:08 | disposition home or self-care (01) ==
LOC: ENDO 09:20
PROVIDERS: ATTEND Internal Medicine Gastroenterology
DX: K29.50 Unspecified chronic gastritis without bleeding (principal); K57.30 Diverticulosis of large intestine without perforation or abscess without bleeding; K64.8 Other hemorrhoids; D50.9 Iron deficiency anemia, unspecified
CPT/HCPCS: 43239; 45378; 88305; 88342; J2001; J2704; J7040; J7120

== ENCOUNTER 2018-04-30 16:20 | Observation (INO) | payer OTHER ==
[2018-04-30] MEDS ORDERED: Albuterol-Ipratrop 3 mg / 0.5 (3 ml) UD IH STA (16:48)
--- NOTE | 2018-04-30 17:01 | ED PDOC ---
Arrival/HPI - General Historian: Patient - History of Present Illness Narrative History of Present Illness (Text): 04/30/18 16:51 43yo male with pmhx of PE, COPD who present with complaint of nasal congestion, chest tightness, chest congestion, nonproductive cough x 2days. States the tightness started today and he is worried of possible PE. Notes the last time he had PE was in 2013 after surgery. He denies diaphoresis, nausea, vomiting, ripping/tearing upper back pain, abdominal pain, any other complaint, sick contact. <JacquesHappiness A - Last Filed: 05/01/18 01:44> <Antony Villalta - Last Filed: 05/02/18 11:29> - General Chief Complaint: Chest Pain Past Medical History - Provider Review Nursing Documentation Reviewed: Yes - Infectious Disease Hx of Infectious Diseases: None - Tetanus Immunization Tetanus Immunization: Unknown - Past Medical History Past Medical History: No Previous - Cardiac Hx Pacemaker: No - Pulmonary Hx Respiratory Disorders: No - Neurological Hx Paralysis: No - HEENT Hx HEENT Disorder: No - Renal Hx Renal Disorder: Yes Hx Kidney Stones: Yes Other/Comment: Renal Colic - Endocrine/Metabolic Hx Endocrine Disorders: No - Hematological/Oncological Hx Blood Transfusions: No Hx Blood Transfusion Reaction: No - Integumentary Hx Dermatological Disorder: No - Musculoskeletal/Rheumatological Hx Musculoskeletal Disorders: No - Gastrointestinal Hx Gastrointestinal Disorders: Yes Hx Diverticulitis: Yes - Genitourinary/Gynecological Hx Genitourinary Disorders: Yes Hx Hematuria: Yes - Psychiatric Hx Emotional Abuse: No Hx Physical Abuse: No Hx Substance Use: No - Past Surgical History Past Surgical History: Non-Contributing - Surgical History Hx Orthopedic Surgery: Yes (2014 achilles tendon repair) - Anesthesia Hx Anesthesia Reactions: Yes (NAUSEA) Hx Malignant Hyperthermia: No - Suicidal Assessment Feels Threatened In Home Enviroment: No <DiruHappiness A - Last Filed: 05/01/18 01:44> Family/Social History - Physician Review Nursing Documentation Reviewed: Yes Family/Social History: Unknown Family HX Smoking Status: Current Some Days Smoker Hx Alcohol Use: Yes Hx Substance Use: No Hx Substance Use Treatment: No <DiruHappiness A - Last Filed: 05/01/18 01:44> Allergies/Home Meds <DiruHappiness A - Last Filed: 05/01/18 01:44> <Antony Villalta - Last Filed: 05/02/18 11:29> Allergies/Adverse Reactions: Allergies avocado Allergy (Intermediate, Verified 10/03/17 13:53) NAUSEA Home Medications: Home Meds Medication Instructions Recorded Confirmed Blackseed Oil 1 cap PO DAILY 10/03/17 04/30/18 Multivitamin [Multiple Vitamins] 1 tab PO DAILY 10/03/17 04/30/18 Review of Systems - Physician Review All systems were reviewed & negative as marked: Yes - Review of Systems Constitutional: Normal Eyes: Normal ENT: Other (Nasal congestion) Respiratory: Cough Cardiovascular: Chest Pain Gastrointestinal: Normal Genitourinary Male: Normal Musculoskeletal: Normal Skin: Normal Neurological: Normal Endocrine: Normal Hemo/Lymphatic: Normal Psychiatric: Normal <JacquesHappiness A - Last Filed: 05/01/18 01:44> Physical Exam Vital Signs Reviewed: Yes Vital Signs Temp Pulse Resp BP Pulse Ox 04/30/18 16:40 98.3 F 90 17 145/77 99 Temperature: Afebrile Blood Pressure: Normal Pulse: Regular Respiratory Rate: Normal Appearance: Positive for: Well-Appearing, Non-Toxic, Comfortable Pain Distress: None Mental Status: Positive for: Alert and Oriented X 3 - Systems Exam Head: Present: Atraumatic, Normocephalic Pupils: Present: PERRL Extroacular Muscles: Present: EOMI Conjunctiva: Present: Normal Mouth: Present: Moist Mucous Membranes Nose (Internal): Present: Normal Inspection Neck: Present: Normal Range of Motion Respiratory/Chest: Present: Good Air Exchange, Wheezes (Mild wheeze at the bases). No: Respiratory Distress, Accessory Muscle Use, Decreased Breath Sounds, Rales, Retracting, Rhonchi, Tachypneic Cardiovascular: Present: Regular Rate and Rhythm, Normal S1, S2. No: Murmurs Abdomen: No: Tenderness, Distention, Peritoneal Signs Back: Present: Normal Inspection Upper Extremity: Present: Normal Inspection. No: Cyanosis, Edema Lower Extremity: Present: Normal Inspection. No: Edema Neurological: Present: GCS=15, CN II-XII Intact, Speech Normal Skin: Present: Warm, Dry, Normal Color. No: Rashes Psychiatric: Present: Alert, Oriented x 3, Normal Insight, Normal Concentration <Diru,Happiness A - Last Filed: 05/01/18 01:44> Vital Signs Temp Pulse Resp BP Pulse Ox 04/30/18 20:11 98 H 18 148/76 96 04/30/18 19:23 110 H 18 145/80 97 04/30/18 16:40 98.3 F 90 17 145/77 99 <Antony Villalta - Last Filed: 05/02/18 11:29> Medical Decision Making ED Course and Treatment: 05/01/18 01:39 Pt presented to ED for stated history. Labs CXR EKG D dimer ASA, solu medrol, Duoneb x3 EKG NSR @ 99bpm. Incomplete RBBB; Prolonged QT chest xray NAD Lab was noted with elevated CE PT was admitted for NSTEMI Metoprolol, Lovonox was ordered case was DW Dr. veloz and he accepted pt to his service. Requested Dr. Dee consult. Result and plan was DW the pt and he agreed - RAD Interpretation Radiology Orders: 04/30/18 16:48 CHEST PORTABLE [RAD] Stat - Medication Orders Current Medication Orders: Discontinued Medications Albuterol/Ipratropium (Duoneb 3 Mg/0.5 Mg (3 Ml) Ud) 3 ml IH Q15M STA Stop: 04/30/18 16:49 Methylprednisolone (Solu-Medrol) 125 mg IVP STAT STA Stop: 04/30/18 16:49 <Malvin Hanna - Last Filed: 05/01/18 01:44> - Lab Interpretations Lab Results: 04/30/18 17:03 04/30/18 17:03 Lab Results 04/30/18 17:50: Urine Opiates Screen Negative, Urine Methadone Screen Negative, Ur Barbiturates Screen Negative, Ur Phencyclidine Scrn Negative, Ur Amphetamines Screen Negative, U Benzodiazepines Scrn Negative, U Oth Cocaine Metabols Negative, U Cannabinoids Screen Negative 04/30/18 17:50: Urine Color Light yellow, Urine Appearance Clear, Urine pH 6.0, Ur Specific [place] 1.015, Urine Protein Negative, Urine Glucose (UA) Negative, Urine Ketones Negative, Urine Blood Negative, Urine Nitrate Negative, Urine Bilirubin Negative, Urine Urobilinogen 0.2, Ur Leukocyte Esterase Negative 04/30/18 17:03: Sodium 139, Potassium 3.9, Chloride 105, Carbon Dioxide 27, Anion Gap 11, BUN 12, Creatinine 1.0, Est GFR ( Amer) > 60, Est GFR (Non- Af Amer) > 60, Random Glucose 106, Calcium 9.0, Magnesium 1.9, Total Bilirubin 0.4, AST 27, ALT 42, Alkaline Phosphatase 43, Lactate Dehydrogenase 399, Total Creatine Kinase 259 H, CK-MB (CK-2) 1.3, CK-MB (CK-2) % Cancelled, Troponin I 0.14 H* D, Total Protein 7.6, Albumin 4.2, Globulin 3.4, Albumin/Globulin Ratio 1.2 04/30/18 17:03: PT 11.2, INR 0.98, APTT 25.5, D-Dimer, Quantitative < 200 04/30/18 17:03: WBC 5.2, RBC 5.05, Hgb 13.5 L, Hct 41.3 L, MCV 81.8, MCH 26.7, MCHC 32.7, RDW 14.0, Plt Count 174, MPV 11.1 H, Gran % 54.7, Lymph % (Auto) 39.1 H, [place] % (Auto) 5.2, Eos % (Auto) 0.4 L, Baso % (Auto) 0.6, Gran # 2.87, Lymph # (Auto) 2.1, [place] # (Auto) 0.3, Eos # (Auto) 0.0, Baso # (Auto) 0.03 - RAD Interpretation Radiology Orders: 04/30/18 16:48 CHEST PORTABLE [RAD] Stat - Medication Orders Current Medication Orders: Discontinued Medications Albuterol/Ipratropium (Duoneb 3 Mg/0.5 Mg (3 Ml) Ud) 3 ml IH Q15M STA Stop: 04/30/18 16:49 Last Admin: 04/30/18 17:15 Dose: 3 ml Aspirin (Ecotrin) 325 mg PO STAT STA Stop: 04/30/18 18:22 Last Admin: 04/30/18 18:31 Dose: 325 mg Enoxaparin Sodium (Lovenox) 40 mg IVP STAT STA; Protocol Stop: 04/30/18 18:23 Last Admin: 04/30/18 18:44 Dose: 40 mg IVP Administration Document 04/30/18 18:44 EB (Rec: 04/30/18 18:54 EB [id number]) Charges for Administration # of IVP Administrations 1 Enoxaparin Sodium (Lovenox) 60 mg SC ONCE ONE; Protocol Stop: 04/30/18 21:26 Last Admin: 04/30/18 22:07 Dose: 60 mg Subcutaneous Administrations Document 04/30/18 22:07 CDL (Rec: 04/30/18 22:07 CDL [id number]) Injection Site MAR Injection Site Right Abdomen Charges for Administration # of Subcutaneous Administrations 1 Influenza Virus Vaccine (Flucelvax Quad 8036-3187 Syr) 60 mcg IM .ONCE ONE Stop: 04/30/18 21:14 Methylprednisolone (Solu-Medrol) 125 mg IVP STAT STA Stop: 04/30/18 16:49 Last Admin: 04/30/18 17:15 Dose: 125 mg IVP Administration Document 04/30/18 17:15 EB (Rec: 04/30/18 17:15 EB [id number]) Charges for Administration # of IVP Administrations 1 Metoprolol Tartrate (Lopressor) 50 mg PO STAT STA Stop: 04/30/18 18:49 Last Admin: 04/30/18 19:22 Dose: 50 mg Pneumococcal Polyvalent Vaccine (Pneumovax 23 Vaccine) 0.5 ml IM .ONCE ONE Stop: 04/30/18 21:14 <Antony Villalta - Last Filed: 05/02/18 11:29> - 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 <Antony Villalta - Last Filed: 05/02/18 11:29> Disposition/Present on Arrival - Present on Arrival Any Indicators Present on Arrival: No History of DVT/PE: Yes History of Uncontrolled Diabetes: No Urinary Catheter: No History of Decub. Ulcer: No History Surgical Site Infection Following: None - Disposition Have Diagnosis and Disposition been Completed?: Yes Disposition Time: 16:40 Patient Plan: Admission <Malvin Hanna - Last Filed: 05/01/18 01:44> <Antony Villalta - Last Filed: 05/02/18 11:29> - Disposition Diagnosis: NSTEMI (non-ST elevated myocardial infarction), COPD (chronic obstructive pulmonary disease) Disposition: HOSPITALIZED Condition: FAIR
[2018-04-30 17:08] LABS: BASO # 0.03 K/mm3 (0.0-2.0); BASO % 0.6 % (0.0-3.0); EOS % 0.4 % (1.5-5.0); GRAN # 2.87 (1.4-6.5); GRAN % 54.7 % (50.0-68.0); HEMOGLOBIN 13.5 g/dL (14.0-18.0); LYMPH # 2.1 (1.2-3.4); LYMPH % 39.1 % (22.0-35.0); MEAN CELL VOLUME 81.8 fl (80.0-105.0); MEAN CORPUSCULAR HEMOGLOBIN 26.7 pg (25.0-35.0); MEAN CORPUSCULAR HGB CONC 32.7 g/dl (31.0-37.0); MEAN PLATELET VOLUME 11.1 fl (7.0-11.0); MONO # 0.3 (0.1-0.6); MONO % 5.2 % (1.0-6.0); RBC 5.05 10^6/uL (3.5-6.1); WHITE BLOOD COUNT 5.2 10^3/uL (4.5-11.0)
--- NOTE | 2018-04-30 17:17 | RAD ---
Date of service: 04/30/2018 HISTORY: cough COMPARISON: 11/11/2013 FINDINGS: LUNGS: The lungs are well inflated and clear. PLEURA: No pleural effusions or pneumothorax. CARDIOVASCULAR: The heart is normal in size. No aortic atherosclerotic calcification present. OSSEOUS STRUCTURES: Within normal limits for the patient's age. VISUALIZED UPPER ABDOMEN: Normal. OTHER FINDINGS: None. IMPRESSION: No active pulmonary disease.
[2018-04-30 17:18] LABS: INR 0.98; PARTIAL THROMBOPLASTIN TIME 25.5 Seconds (25.1-36.5); PROTHROMBIN TIME 11.2 SECONDS (9.4-12.5)
[2018-04-30 17:38] LABS: D DIMER < 200 ng/mlDDU (0-243)
[2018-04-30 17:45] LABS: ALB/GLOB RATIO 1.2 (1.1-1.8); ALBUMIN 4.2 g/dL (3.0-4.8); ALT/SGPT 42 U/L (7-56); AST/SGOT 27 U/L (17-59); BLOOD UREA NITROGEN 12 mg/dL (7-21); GFR NON-AFRICAN AMERICAN > 60
[2018-04-30 18:13] LABS: CK-MB 1.3 ng/mL (0.0-3.6); TROPONIN I 0.14 ng/mL
[2018-04-30] MEDS ORDERED: Aspirin 325 mg EC Tablets PO STA (18:21)
[2018-04-30] MEDS ORDERED: Enoxaparin 40 mg Syringe IVP STA (18:22)
[2018-04-30 18:23] LABS: URINE BILIRUBIN NEGATIVE (NEGATIVE); URINE BLOOD NEGATIVE (NEGATIVE); URINE GLUCOSE (UA) NEGATIVE (NEGATIVE); URINE LEUKOCYTE ESTERASE NEGATIVE Leu/uL (NEGATIVE); URINE PROTEIN NEGATIVE mg/dL (<30 mg/dL); URINE UROBILINOGEN 0.2 E.U./dL (<1 E.U./dL)
[2018-04-30 18:24] LABS: BARBITURATES, UR NEGATIVE (NEGATIVE); BENZODIAZEPINES, UR NEGATIVE (NEGATIVE); OPIATES, UR NEGATIVE (NEGATIVE); PHENCYCLIDINE, UR NEGATIVE (NEGATIVE)
[2018-04-30 18:28] LABS: URINE APPEARANCE CLEAR (CLEAR); URINE COLOR LIGHT YELLOW (YELLOW)
[2018-04-30 21:13] VITALS: BMI 35.5
[2018-04-30] MEDS ORDERED: Influenza Vaccine 60 mcg/0.5 mL SYR (4YR UP) IM ONE (21:13)
[2018-04-30] MEDS ORDERED: Pneumococcal 23-Valent Vaccine IM ONE (21:13)
[2018-04-30] MEDS ORDERED: Enoxaparin 60 mg Syringe SC ONE (21:25)
[2018-05-01 00:20] VITALS: RESP 20
--- NOTE | 2018-05-01 05:52 | CARD ---
APPROVED REPORT Date of service: 04/30/2018 EKG Measurement Heart [id number] <Conclusion> Normal sinus rhythm Incomplete right bundle branch block Nonspecific T wave abnormality Prolonged QT Abnormal ECG
--- NOTE | 2018-05-01 09:20 | CON ---
DATE: 05/01/2018 REQUESTING PHYSICIAN: Dr. Casillas. REASON FOR CONSULTATION: Chest pain. HISTORY: This is a 43-year-old man who presents to the Emergency Room with complaints of chest discomfort. He states his symptoms were preceded by nonproductive cough and nasal congestion for several days. Yesterday, he began to develop a chest tightness which he felt was progressive and concerning. He presented to the Emergency Room for evaluation. His electrocardiogram was unremarkable; however, his first troponin was mildly elevated at 0.14. CK was also elevated. He does admit to doing some heavy weightlifting at the gym several days ago as well. He is not hypertensive or diabetic. He smokes cigars occasionally. There is no family history of premature heart disease. He believes his cholesterol is normal. He is not a diabetic. PAST MEDICAL HISTORY: Notable for a pulmonary embolus in 2013 following Achilles tendon surgery repair. He also has a history of nephrolithiasis in the past. He has been overweight for some time and he has been working to reduce this. MEDICATIONS AT HOME: None. ALLERGIES: NO DRUG ALLERGIES NOTED. FAMILY HISTORY: Mother from liver cancer. Father from HIV-related illness. There is no family history of premature heart disease. 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 REVIEW OF SYSTEMS: Ten-point review of systems is otherwise unremarkable. He states he exercises fairly regularly with no significant limitations. PHYSICAL EXAMINATION: GENERAL: He is an overweight middle-aged man. VITAL SIGNS: His blood pressure is 108/60 with pulse of 62 and sinus, respirations of 14. He is afebrile. HEENT: Normocephalic, atraumatic. NECK: Supple. No JVD noted. CHEST: Clear to auscultation and percussion. HEART: PMI normal position. Has soft systolic murmurs present in the left sternal border. ABDOMEN: Soft, mildly obese, nontender, normoactive bowel sounds. EXTREMITIES: No clubbing, cyanosis, edema. SKIN: Warm and dry. PSYCHIATRIC: Normal mood and affect. NEUROLOGIC: Alert and oriented x3. No gross motor or sensory deficits appreciable. DIAGNOSTIC DATA: White count 5.2, hemoglobin and hematocrit of 13.5 and 41.3 with a platelet count of 174,000. PT and PTT were normal. Potassium 3.9. BUN and creatinine of 12 and 1. Total CK 259 with a CK-MB of 1.3. Troponin 0.14. Toxicology screen is negative. Electrocardiogram reveals sinus rhythm with an incomplete right bundle-branch block, nonspecific ST-T abnormalities. Chest x-ray reveals normal cardiac silhouette with clear lung cardoso. IMPRESSION: Chest pain, sounds more likely musculoskeletal in nature, either due to recent vigorous coughing and/or weightlifting. Borderline elevated troponin, needs repeat evaluation. RECOMMENDATIONS: Followup troponin is pending. Repeat EKG will be planned as well. If his troponin trends higher, he will need to remain in the hospital for further evaluation. If he has no further chest discomfort and repeat troponin is not elevated, discharge home with outpatient followup and outpatient stress test would be advised. Thank you for this consultation. I will be happy to follow along through his hospital course as needed and see him as an outpatient as well. Freddie Manzano MD MTDAdela
[2018-05-01 11:44] VITALS: BP 118/70; PULSE 60; TEMP 98.7
[2018-05-01 12:28] VITALS: O2SAT 100
--- NOTE | 2018-05-01 13:45 | DS ---
The patient was admitted with left-sided chest pain, evaluated by Cardiology, Dr. Manzano. Cardiac enzymes were elevated during admission. The second set of enzymes was normal. He is being discharged in a stable condition. He will be evaluated by Dr. Manzano next week. Detailed note is dictated under today's date, 05/01/2018. Please refer for details to the prior note dictated today. He is being discharged to home in a stable condition. Advised rest for one week. Toyin Mixon MD
--- NOTE | 2018-05-01 14:06 | HP ---
DATE OF EXAM: 05/01/2018 HISTORY OF PRESENT ILLNESS: Mr. Andrade is a 43-year-old male admitted to the hospital with complaints of nasal congestion, chest tightness, nonproductive cough for 2 days. No fever. No cough with expectoration. He had history of pulmonary embolism in 2013 after surgery. Troponins were elevated. He was evaluated as troponins were elevated. No chest pain right now. PAST MEDICAL HISTORY: Renal stones, history of hematuria, diverticulitis, pulmonary embolism. PAST SURGICAL HISTORY: Orthopedic surgery on Achilles tendon. PERSONAL HISTORY: No history of alcohol abuse. Nonsmoker and some days smoker. ALLERGIES: TO AVOCADO. HOME MEDICATIONS: Multivitamin. REVIEW OF SYSTEMS: As per HPI. Rest of 12-point review of systems reviewed and negative. PHYSICAL EXAMINATION: GENERAL: Comfortable in bed, in no acute distress. VITAL SIGNS: Temperature 98.3, heart rate 90 per minute, respiratory rate 17 per minute, blood pressure 130/70, pulse ox is 98% on room air. HEENT: Pallor positive. NECK: No lymphadenopathy. CHEST: Air entry present and equal bilaterally. No added sound. CARDIOVASCULAR: S1 and S2 normal. No murmur. No gallop. ABDOMEN: Soft, nontender. No hepatosplenomegaly. EXTREMITIES: No edema. CENTRAL NERVOUS SYSTEM: Alert and oriented x3. No focal sensory motor deficit. IMAGING STUDIES: Chest x-ray, no infiltrate. LABORATORY DATA: White count 5.2, hemoglobin 13.5, hematocrit 41.3, platelets 174,000. Sodium 139, potassium 3.9, creatinine 1. Troponin 0.14. Total protein 7.6, albumin 4.2, globulin 3.4. UA negative. Coagulations normal. ASSESSMENT: 1. Non-ST elevation myocardial infarction. 2. History of pulmonary embolism. 3. Acute bronchitis. 4. Mild anemia. PLAN: He will be admitted to the hospital for tele-monitoring. Cardiology consultation Dr. Manzano requested, note reviewed, consult appreciated. Received the dose of Lovenox, repeat Cardizem were within normal limits. UA negative. Chest x-ray did not show infiltrate. He has mild anemia, hemoglobin 13.5, currently comfortable. He will be discharged home today. Cardiac stress test will be done as an outpatient. I advised rest for 1 week. 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 I advised him not to work until cleared by Dr. Manzano. He will see Dr. Manzano next week for outpatient cardiac stress test. Clear instruction given to the patient. He demonstrated understanding, discussion well. Discussed with the staff nurse. Toyin Mixon MD
--- NOTE | 2018-05-02 08:25 | CARD ---
APPROVED REPORT Date of service: 05/01/2018 EKG Measurement Heart [id number] <Conclusion> Sinus bradycardia with sinus arrhythmia Otherwise normal ECG
== END 2018-05-01 12:29 | disposition home or self-care (01) ==
LOC: ED 16:20 → ERH 18:32 → INTOOBSV 18:32 → ERH 19:36 → 2RSO 20:20
PROVIDERS: ADMIT Internal Medicine Nephrology; ATTEND Internal Medicine Nephrology
DX: J20.9 Acute bronchitis, unspecified (principal); J44.0 Chronic obstructive pulmonary disease with (acute) lower respiratory infection; F17.290 Nicotine dependence, other tobacco product, uncomplicated; D64.9 Anemia, unspecified; E66.3 Overweight; Z86.711 Personal history of pulmonary embolism; Z87.442 Personal history of urinary calculi
CPT/HCPCS: 36415; 71045; 80053; 80324; 80345; 80346; 80349; 80353; 80358; 80361; 81003; 82550; 82553; 83615; 83735; 83992; 84484; 85025; 85378; 85610; 85730; 93005; 96372; 96374; 96375; 99285; G0378; J1650; J2930